=== PATIENT | female | born 1955 | race Caucasian/White ===

== ENCOUNTER 2017-02-08 13:21 | Emergency (ER) | payer MEDICAID ==
--- NOTE | ~2017-02-08 | CR63 ---
[facility]. [facility] A Service of [facility] & [facility] / [facility] RADIOLOGY TEXT RESULTS PATIENT: CASSANDRA THURSTON LOCATION: SED : 53 UNIT #: [id number] AGE: [address]: Ernesto Mata SEX: F ORDER DR: [id number] [address] [id number] E MR#: [id number] Acc #: [id number] NAME: CASSANDRA THURSTON : 1955 SEX: F STUDY DATE/TIME: 02/08/2017 13:51 UNIT: SED ROOM: STUDY DESCRIPTION: CR Chest 2 View Attending Physician: Ernesto Mata P.A.-C. Ordering Physician: Ernesto Mata P.A.-C. Primary Care Physician: Jm Polanco M.D. MEDICAL IMAGING REPORT This report is preliminary unless electronic signature is present. EXAM PA lateral chest, 02/08/2017 HISTORY Sore throat, cough, congestion for 5 days. Asthma. Rheumatoid arthritis. COMPARISON AP portable chest 06/11/2016. PA and lateral chest 01/07/2015. FINDINGS Stable cardiac enlargement. Stable appearing thoracic aortic ectasia. No acute airspace disease is seen. No pleural effusion or pneumothorax. No acute osseous abnormalities. IMPRESSION Stable cardiac enlargement and thoracic aortic ectasia. No acute findings or significant change compared to 01/07/2015. Dictated by... Rahel Carlson M.D. THIS IS AN ELECTRONICALLY VERIFIED REPORT Rahel Carlson M.D. at 02/09/2017 6:12 AM DAMIEN/alistair TD: 02/08/2017 14:44 JOB #: [id number] MEDICAL IMAGING REPORT Page 1 of 1
[~2017-02-08 13:21] MED LIST: ALBUTEROL0.83 MG/ML; ALBUTEROL17 GM INH; AMOXICILLIN500 M1 PO; ASPIRIN PO; ATARAX PO; AUGMENTIN875 MG PO; B COMPLEX1 TAB.S1 PO; BAYER CHEWABLE81 MG PO; BENACAR; BENZONATATE PO; BP PILL; CHOLESTEROL MED; CIPRO PO; CLEOCIN PO; DOXYCYCLINE HY100 M3; ENBREL25 MG/0.5; FERROUS SULFATE PO; FISH OIL; FLAGYL PO; FLONASE 0.05% N16 G1 INH; HCTZ PO; HYDROCODON-ACE1 EAC7 PO; IBUPROFEN800 MG PO; INSULIN SUBQ; KCL PO; KEFLEX PO; LANTUS100 U/ML INJ; LEVEMIR100 U/ML SUBQ; LISINOPRIL; LISINOPRIL PO; LOPRESSOR; METHOTREXATE2.5 MG PO; MOBIC PO; MOBIC15 MG; PERCOCET5/325 PO; PHENERGAN/CODEIN5 ML PO; PHENERGAN25 M1 PO; POTASSIUM; PREDNISONE PO; PREDNISONE10 MG/DOSE PO; SALSALATE500 MG PO; SUDAFED PO; SYNTHROID PO; TESSALON PERLE100 M1 DOB; TRAMADOL HCL50 M2 PO; ULTRAM PO; VICODIN 5/500 T1 TAB PO; VIT B-12 PO; VITAMIN D; VOLTAREN75 MG PO; VYTORIN PO; ZITHROMAX PO; ZOCOR PO; ZOFRAN ODT4 MG PO; ZYRTEC PO; [UNRECOGNIZED DRUG - OTHER] SQ; [UNRECOGNIZED DRUG - REMARK]
== END 2017-02-08 14:37 | disposition home or self-care (01) ==
LOC: SED 13:21
DX: J02.9 Acute pharyngitis, unspecified (principal); J06.9 Acute upper respiratory infection, unspecified; Z20.818 Contact with and (suspected) exposure to other bacterial communicable diseases; F41.9 Anxiety disorder, unspecified; J45.909 Unspecified asthma, uncomplicated; K21.9 Gastro-esophageal reflux disease without esophagitis; E11.9 Type 2 diabetes mellitus without complications; M06.9 Rheumatoid arthritis, unspecified; Z90.710 Acquired absence of both cervix and uterus; Z90.49 Acquired absence of other specified parts of digestive tract; Z88.8 Allergy status to other drugs, medicaments and biological substances; Z79.4 Long term (current) use of insulin; Z79.899 Other long term (current) drug therapy
CPT/HCPCS: 71020; 82947; 87651; 99283